=== PATIENT | male | born 1965 | race Caucasian/White ===

== ENCOUNTER 2017-06-25 05:47 | Inpatient (IN) | payer OTHER ==
[2017-06-11 07:58] VITALS: BMI 34.0
--- NOTE | 2017-06-11 08:31 | PAT Medication Instructions ---
Service Date Jun 11, 2017. Current Home Medication List Aspirin (Aspirin Ec), 81 MG PO QAM Fish Oil ([place]-3), 1 CAP PO QAM Lansoprazole (Prevacid), 30 MG PO QAM Multivitamin (Multivitamin), 1 TAB PO QAM Simvastatin (Zocor), 10 MG PO QAM Medication Instructions For Your Scheduled Surgery - Hold the following medications 2 weeks prior to surgery: Fish Oil ([place]-3), 1 CAP PO QAM - Hold the following medications the morning of surgery: Multivitamin (Multivitamin), 1 TAB PO QAM - Take the following medications the morning of surgery with a sip of water: Simvastatin (Zocor), 10 MG PO QAM Lansoprazole (Prevacid), 30 MG PO QAM Aspirin (Aspirin Ec), 81 MG PO QAM If you have any questions please call us at [phone] or [phone] or [phone]
[2017-06-11 10:24] LABS: BASO % 0.4 %; BASO ABS # 0.02 K/uL (0-0.2); COMPLETE YES; EOS % 1.7 %; HEMATOCRIT 41.1 % (42-52); LYMPH % 33.9 %; LYMPH ABS # 1.84 K/uL (1.2-3.4); MEAN CELL VOLUME 83.2 fL (80-100); MEAN CORPUSCULAR HEMOGLOBIN 27.7 pg (25-34); MEAN CORPUSCULAR HGB CONC 33.3 g/dl (32-36); MEAN PLATELET VOLUME 10.2 fL (7.4-10.4); MONO % 9.2 %; NEUT % 54.8 %; PLATELET COUNT 301 K/uL (130-400); RED BLOOD COUNT 4.94 M/uL (4.7-6.1); URINE APPEARANCE CLEAR (CLEAR); URINE BILIRUBIN NEG (NEG); URINE COLOR YELLOW; URINE NITRITE NEG (NEG); URINE SPECIFIC GRAVITY 1.018 (1.000-1.030); UROBILINOGEN NEG (NEG); WHITE BLOOD COUNT 5.43 K/uL (4.8-10.8)
[2017-06-11 10:35] LABS: MANUAL MICROSCOPIC REQUIRED? NO; PARTIAL THROMBOPLASTIN RATIO 1.2; PROTHROMBIN TIME (PATIENT) 10.7 SECONDS (9.0-12.0); REVIEW REQ? NO
[2017-06-11 10:49] LABS: ESTIMATED AVERAGE GLUCOSE 114 mg/dl; HA1C FLAG Normal (Normal)
[2017-06-11 11:20] LABS: BUN/CREATININE RATIO 24.8 (10-20); CALCIUM 9.5 mg/dl (8.5-10.1); CREATININE 0.85 mg/dl (0.60-1.40); POTASSIUM 4.5 mmol/L (3.5-5.1)
--- NOTE | 2017-06-11 12:47 | DIAGNOSTIC IMAGING REPORT ---
CHEST PREADMISSION(PA/LAT) CLINICAL HISTORY: 51 years-old Male presenting with PAT. TECHNIQUE: PA and lateral views of the chest were obtained. COMPARISON: None. FINDINGS: Cardiomediastinal silhouette normal. Lungs and pleural spaces clear. Osseous structures normal. Upper abdomen normal. IMPRESSION: 1. No acute cardiopulmonary disease. Electronically signed by: Shabbir Castro M.D. 06/11/2017 12:46 PM Dictated Date/Time: 06/11/2017 12:46 PM
--- NOTE | 2017-06-24 20:31 | HISTORY & PHYSICAL EXAMINATION ---
DATE OF ADMISSION: 06/25/2017 HISTORY OF PRESENT ILLNESS: The patient presents being seen and evaluated with complaints of ongoing pain about his left knee with severe endstage DJD about his left knee for left total knee arthroplasty. This is a 51-year-old white male, 5 foot 11 inches, 240 pounds with severe left knee DJD who has failed attempts at conservative management including physical therapy, anti-inflammatories, relative rest, activity modification, viscosupplementation and presents for left total knee arthroplasty. PAST MEDICAL HISTORY: Significant for hypercholesterolemia. He denies any history of hypertension, thyroid or diabetes. His pain is otherwise unremarkable. FAMILY HISTORY: Unremarkable and noncontributory. PAST SURGICAL HISTORY: Significant for previous arthroscopy in 2001, left knee with ACL reconstruction in 2004. ALLERGIES: None. MEDICATIONS: Include Prevacid p.r.n., simvastatin 40 mg p.o. daily, aspirin 81 mg p.o. daily. REVIEW OF SYSTEMS: Otherwise unremarkable. See history of present illness for pertinent positives. PHYSICAL EXAMINATION: GENERAL: A very pleasant 51-year-old male. HEENT: Unremarkable, alert and oriented, atraumatic, normocephalic. HEART: Heart rate 70 beats per minute. LUNGS: Clear without rales, rhonchi, or wheezes noted. ABDOMEN: Soft, nontender, nondistended. Bowel sounds are present in all 4 quadrants. RECTAL: No rectal examination was performed. MUSCULOSKELETAL: Severe end-stage DJD. PLAN: Plan is for total knee arthroplasty, postoperative pain management, DVT prophylaxis, antibiotics as necessary. X-rays revealed there to be evidence of subchondral cystic changes, sclerosis, marginal osteophytes and varus alignment with bone to bone changes involving the medial compartment. Plan is for total knee arthroplasty, postoperative pain management, DVT prophylaxis.
[~2017-06-25] VITALS: Ht 180.3 cm; Wt 112.2 kg
[2017-06-25] VITALS (8 sets, daily range): BP systolic 95–141; BP diastolic 54–94; PULSE 77–97; TEMP 36.3–37.1; O2SAT 95–97; Ht 180.3 cm; Wt 112.2 kg
[~2017-06-25 05:47] MED LIST: ASPI81TA28 PO; LANS30CA12 PO; MULT-506 PO; OMEG10007 PO; SIMV10TA2 PO
[2017-06-25] MEDS ORDERED: DEXAMETHASONE 4 MG TAB PO SCH (06:00)
[2017-06-25] MEDS ORDERED: LACTATED RINGER'S 1000ML 500 ML IV ONE (06:00)
[2017-06-25] MEDS ORDERED: ACETAMINOPHEN 500 MG TAB PO SCH (06:00)
[2017-06-25] MEDS ORDERED: LACTATED RINGER'S 1000ML IV SCH (06:00)
[2017-06-25] MEDS ORDERED: GABAPENTIN 300 MG CAP PO SCH (06:00)
[2017-06-25] MEDS ORDERED: FAMOTIDINE 20 MG TAB PO SCH (06:00)
[2017-06-25] MEDS ORDERED: LACTATED RINGER'S 1000ML 1,000 ML IV SCH (06:00)
[2017-06-25] MEDS ORDERED: ROPIVACAINE 5MG/ML 30 ML 150 MG, BUPIVACAINE/EPINEPHR 0.5% MPF 30 ML, KETOROLAC TROMETH... INFIL SCH ×7 (06:00)
[2017-06-25] MEDS ORDERED: CEFAZOLIN 2000MG IV PUSH 10 ML IV SCH (06:00)
[2017-06-25] MEDS ORDERED: TRANEXAMIC ACID INJ 1,000 MG in SYRINGE 0 ML IV SCH (06:00)
[2017-06-25] MEDS ORDERED: CeleBREX 200 MG CAP PO SCH (06:00)
[2017-06-25] MEDS: TRANEXAMIC ACID INJ 1,000 MG in SYRINGE 0 ML IV SCH ×2 (06:30→06:52)
[2017-06-25] MEDS ORDERED: BUPIVACAINE 0.5 % 5 MG/1 ML PF 10ML VIAL ONE (06:37)
[2017-06-25] MEDS ORDERED: BUPIVACAINE 0.25% 30 ML VIAL ONE (06:37)
[2017-06-25] MEDS ORDERED: PROPOFOL IV EMULSION 10 MG/ML 20 ML VIAL IV ONE ×4 (07:00→10:03)
[2017-06-25] MEDS ORDERED: LIDOCAINE HCL 2% 2 ML VIAL (20MG/ML) ONE (07:00)
[2017-06-25] MEDS ORDERED: MIDAZOLAM HCL 1 MG/ML 2ML VIAL ONE ×3 (07:00→08:53)
--- NOTE | 2017-06-25 07:07 | History & Physical Bridge Note ---
H&P Re-Evaluation Bridge Note: I have examined the patient, reviewed the History & Physical and in the interval since the performance of the History & Physical I have noted the following changes of clinical significance: No changes noted
[2017-06-25] MEDS ORDERED: ORTHO JOINT ANESTHETIC ONE (07:12)
[2017-06-25] MEDS ORDERED: POVIDONE-IODINE OP SOLN 30 ML BTL ONE (07:13)
[2017-06-25] MEDS ORDERED: BACITRACIN 50000 UNIT VIAL ONE (07:13)
[2017-06-25] MEDS ORDERED: SODIUM CHLORIDE 0.9% INJ 10 ML VIAL ONE ×2 (08:53→09:09)
[2017-06-25] MEDS ORDERED: CEFAZOLIN SOD 1 GM VIAL ONE (08:53)
[2017-06-25] MEDS ORDERED: KETOROLAC TROMETHAMINE 30 MG/ML VIAL IV. PRN ×2 (09:00→10:15)
[2017-06-25] MEDS ORDERED: PHENYLEPHRINE 100MCG/ML 5ML SYR IV PRN (09:00)
[2017-06-25] MEDS ORDERED: EpHEDrine SULFATE INJ 50 MG/ML AMP IV PRN (09:00)
[2017-06-25] MEDS ORDERED: HYDROmorphone INJ 2 MG/ML SYR/VIAL IV PRN (09:00)
[2017-06-25] MEDS ORDERED: ATROPINE SULFATE 0.1 MG/ML 5ML SYR IV PRN (09:00)
[2017-06-25] MEDS ORDERED: ONDANSETRON INJ 2 MG/ML 2 ML VIAL IV PRN ×2 (09:00→10:15)
[2017-06-25] MEDS ORDERED: KETAMINE HCL INJ 50 MG/ML 10 ML VIAL ONE (09:09)
[2017-06-25] MEDS ORDERED: BISACODYL 10 MG SUPP PR PRN (10:15)
[2017-06-25] MEDS ORDERED: TRAMADOL HCL 50 MG TAB PO PRN (10:15)
[2017-06-25] MEDS ORDERED: SOD PHOSPHATE/SOD BIPHOSPHATE ENEMA 132 ML BTL PR PRN (10:15)
[2017-06-25] MEDS ORDERED: MAGNESIUM HYDROXIDE SUSP 30 ML UDC PO PRN (10:15)
[2017-06-25] MEDS ORDERED: MoRPHine SULFATE 2 MG/ML CARP IV PRN ×2 (10:15→12:00)
[2017-06-25] MEDS ORDERED: ZOLPIDEM TARTRATE 5 MG TAB PO PRN (10:15)
[2017-06-25] MEDS ORDERED: ALUMINUM/MAGNESIUM/SIMETH (MAALOX MAX) 30 ML UDC PO PRN (10:15)
--- NOTE | 2017-06-25 10:19 | [facility] Operative Report ---
Operative Report Operative Date Jun 25, 2017. Pre-Operative Diagnosis Left knee severe degenerative joint disease Post-Operative Diagnosis Left knee severe degenerative joint disease Procedure(s) Performed Left Total Knee Arthroplasty utilizing Gilbert & Nephew journey 2 patient matched size 8 femur 6 tibia 11 Clara [address] Guillaume Armature Straightener Surgeon(s) Paul Mullen PA-C Estimated Blood Loss 5cc Findings Severe end-stage DJD with [id number] changes subchondral sclerosis cystic changes osteophytes Specimens Left knee bone and tissue Complication(s) None Disposition Recovery Room / PACU Indications Severe end-stage DJD nonresponse to conservative management including physical therapy anti-inflammatories relative rest activity modification subchondral sclerosis cystic changes osteophytes Description of Procedure After proper prepping and draping of the left lower extremity anterior midline incision was made over the region of the extensor extensor mechanism after meticulous hemostasis was obtained and maintained in subcutaneous tissues a medial parapatellar incision was made The patella was subluxed lateralward the medial lateral gutter were cleaned from any hypertrophic synovitis and scar tissue of the distal femoral block was placed and the distal femoral osteotomy cut was made subsequently the chamfers anterior and posterior osteotomy cuts were made utilizing the 4-in-1 block the tibia was subsequently subluxed anteriorward medial and ateral meniscal remnants were excised in their entirety remnants of the anterior and posterior cruciate ligaments were excised in their entirety excellent exposure of the proximal tibia was obtained the tibial osteotomy guide was placed on the proximal tibial osteotomy cut was made once again the knee was irrigated with copious amounts of sterile saline solution the patella was subsequently everted lateralward thickened scar tissue around the patella was removed the patella was subsequently cut utilizing a freehand technique and was drilled prepared for final preparation and placement of patella socially flexion-extension gaps were checked and the equal and symmetric trials were placed to the appropriate femoral and tibial trials with poly-spacer being placed for equal flexion and extension gaps and full range of motion including extension to 0 and flexion to 140 the trial components after having been taken to recovery range of motion was subsequently removed meticulous hemostasis was obtained and maintained subsequently a knee block injection of joint cocktail including ropivacaine 0.5% 150 mg. Bupivacaine 0.5 % epinephrine 1-200,030 mL's toradol 30 mg dexamethasone 4 mg ketamine 10 mg clonidine 100 micrograms normal saline solution 30 mg was infiltrated into the soft tissues of the posterior knee medial lateral gutters and periosteal synovium special attention was paid to protect neurovascular structures at all times subsequently trial components having been removed the knee was irrigated with sterile saline solution. debris was removed the proximal tibia was subsequently prepared and was made ready for the placement of the tibial component tibial component was also cemented and tamped into position the femoral component was subsequently placed and cemented in the position the patellar component was subsequently cemented in position because hemostasis once again obtained and maintained wound having been thoroughly irrigated with debridement and debridement lavage was performed as well as a medial parapatellar incision closed with #1 Vicryl in interrupted fashion subcutaneous was closed with #2 Vicryl skin was closed with skin clips. PA-C was necessary for prepping and drapping as well as wound closure of deep fascia Sub cutaneous tissue and skin and was necessary for the case. A sterile compressive dressing was placed patient was taken to recovery in stable condition of report dictated by Markell I attest to the content of the Intraoperative Record and any orders documented therein. Any exceptions are noted below. I attest to the content of the Intraoperative Record and any orders documented therein. Any exceptions are noted below.
--- NOTE | 2017-06-25 11:47 | DIAGNOSTIC IMAGING REPORT ---
LEFT KNEE 2 VIEWS History: Left total knee arthroplasty. Degenerative arthritis. Postop. FINDINGS: The patient is status post a left total knee arthroplasty. The hardware is intact. No fracture or dislocation. Surgical drains are in place. IMPRESSION: Left total knee arthroplasty. No evidence for hardware complication. Electronically signed by: Santy Funez M.D. 06/25/2017 11:46 AM Dictated Date/Time: 06/25/2017 11:45 AM
[2017-06-25] MEDS ORDERED: MoRPHine SULFATE 4 MG/ML 1 ML CARP\\VIAL IV PRN (12:00)
[2017-06-25] MEDS ORDERED: MoRPHine SULFATE 10 MG/ML CARP/VIAL IV PRN (12:00)
--- NOTE | 2017-06-25 12:57 | Anesthesiology Progress Note ---
Anesthesia Post Op Note Date & Time Jun 25, 2017 at 12:57 Vital Signs Pain Intensity: 0 Vital Signs Past 12 Hours Date Time Temp Pulse Resp B/P (MAP) Pulse Ox O2 Delivery O2 Flow Rate FiO2 06/25/17 12:32 86 16 127/81 (96) 96 Room Air 06/25/17 11:40 36.6 89 20 124/79 96 Nasal Cannula 3 06/25/17 11:30 88 20 120/79 96 Nasal Cannula 3 06/25/17 11:20 88 20 134/87 96 Nasal Cannula 3 06/25/17 11:10 93 18 133/80 97 Nasal Cannula 3 06/25/17 11:00 36.2 93 20 123/75 97 Nasal Cannula 3 06/25/17 10:50 36.2 102 20 129/72 97 Nasal Cannula 3 06/25/17 06:10 37 84 20 141/94 95 Room Air Notes Mental Status: alert / awake / arousable, participated in evaluation Pt Amnestic to Procedure: Yes Nausea / Vomiting: adequately controlled Pain: adequately controlled Airway Patency, RR, SpO2: stable & adequate BP & HR: stable & adequate Hydration State: stable & adequate Anesthetic Complications: no major complications apparent
[2017-06-25] MEDS: D5W AND 1/2NSS + 20MEQ KCL 1,000 ML IV SCH ×2 (13:27→22:36)
[2017-06-25] MEDS: ACETAMINOPHEN 500 MG TAB PO SCH ×2 (13:30→21:42)
[2017-06-25] MEDS: CEFAZOLIN IV 2,000 MG in SYRINGE 0 ML IV SCH (17:12)
[2017-06-25] MEDS ORDERED: CEFAZOLIN IV 2,000 MG in SYRINGE 0 ML IV SCH (19:00)
[2017-06-25] MEDS: DOCUSATE SODIUM 100 MG CAP PO SCH (20:43)
[2017-06-25] MEDS: ASPIRIN 81 MG ECTAB PO SCH (20:43)
[2017-06-25] MEDS ORDERED: SENNA 8.6 MG TAB PO SCH (21:00)
[2017-06-25] MEDS: OXYCODONE HCL IR 5 MG TAB (IMMEDIATE RELEASE) PO PRN (21:45)
[2017-06-26] MEDS: CEFAZOLIN IV 2,000 MG in SYRINGE 0 ML IV SCH (00:29)
[2017-06-26 03:40] VITALS: BP 109/66; PULSE 76; TEMP 36.7; O2SAT 96
[2017-06-26] MEDS: ACETAMINOPHEN 500 MG TAB PO SCH (06:27)
--- NOTE | 2017-06-26 07:22 | Orthopedic Progress Note ---
Orthopedic Progress Note Date of Service Jun 26, 2017. Subjective Post OP Day: 1 Reports: feeling well, pain controlled w PO medications, Denies: complaints, chest pain, SOB, nausea / vomiting, light headedness, calf pain Objective calves soft nontender, N/V intact, capillary refill less than 2 sec., dressing C /D/I, A&O x3, toes mobile, hemovac drainage (100cc/8 hours) Date Time Temp Pulse Resp B/P (MAP) Pulse Ox O2 Delivery O2 Flow Rate FiO2 06/26/17 03:40 36.7 76 17 109/66 (80) 96 Room Air 06/26/17 00:30 Room Air 06/25/17 23:10 36.7 88 16 95/54 (68) 95 Room Air 06/25/17 19:30 36.3 84 18 116/72 (87) 96 Room Air 06/25/17 15:30 Nasal Cannula 2.0 06/25/17 15:00 36.8 77 18 134/69 (90) 96 Nasal Cannula 2.0 06/25/17 14:02 86 16 109/72 (84) 97 Nasal Cannula 2.0 06/25/17 13:00 97 16 110/74 (86) 95 06/25/17 12:32 86 16 127/81 (96) 96 Room Air 06/25/17 12:00 37.1 92 16 115/74 (88) 95 Nasal Cannula 2.0 06/25/17 12:00 Nasal Cannula 2.0 06/25/17 12:00 95 Nasal Cannula 2.0 06/25/17 11:40 36.6 89 20 124/79 96 Nasal Cannula 3 06/25/17 11:30 88 20 120/79 96 Nasal Cannula 3 06/25/17 11:20 88 20 134/87 96 Nasal Cannula 3 06/25/17 11:10 93 18 133/80 97 Nasal Cannula 3 06/25/17 11:00 36.2 93 20 123/75 97 Nasal Cannula 3 06/25/17 10:50 36.2 102 20 129/72 97 Nasal Cannula 3 Laboratory Results 24 Hours: Test 06/26/17 06:46 Assessment & Plan Assessment: POD #1 s/p Left TKA -PT/OT -dvt proph with BRENNA/SCD/ASA -will recheck after PT this afternoon for poss discharge with OPPT Discharge Planning Discharge Planning: home DVT Prophylaxis: TEDs, SCDs, ASA Therapy: Physical Therapy
--- NOTE | 2017-06-26 07:23 | Discharge Instructions ---
Discharge Instructions Date of Service Jun 26, 2017. Admission Reason for Admission: Left Knee Osteoarthritis Discharge Discharge Diagnosis / Problem: s/p Left Total Knee Replacement Discharge Goals Goal(s): Decrease discomfort, Improve function, Increase independence Activity Recommendations Activity Limitations: as noted below Weightbearing Status: Left weightbearing (as tolerated) . Instructions / Follow-Up Instructions / Follow-Up ACTIVITY RECOMMENDATIONS: SELF CARE INSTRUCTIONS AFTER TOTAL KNEE REPLACEMENT A. You may need to continue a physical therapy program after discharge from the hospital. There are several options available to you. Your doctor will assist you in selecting the best one for you. 1. An out-patient facility 2 to 3 times a week for therapy or home therapy. 2. Continue working on all exercises taught to you in the hospital. Your goals should be to increase bending of your knee to 90 degrees and beyond and to fully straighten your knee. B. You may progress at your own pace from walking with a walker or crutches to a cane; then to no assistive devices. C. Make walking a part of your daily routine. Be up as much as comfortable with rest periods throughout the day. Rest with leg elevation is very important. Use the ice wrap frequently for the first 3-4 weeks. D. There are no restrictions on activities. You may ride in a car, shop, participate in scheduling specialist and all social activities. E. Wear the long elastic stockings (BRENNA hose) 20 hours a day for 2 weeks after surgery. They can be removed several times a day for laundering and for a bath. F. You may shower, no tub baths until cleared by your doctor. SPECIAL CARE INSTRUCTIONS: VERY IMPORTANT TO READ AND REVIEW A. There are a few signs you need to watch for after you are home. Call [facility] [place] if you notice any of the followin. Increased severe knee pain. Some pain is expected especially when you exercise. 2. Increased swelling in your leg or knee; pain or swelling of the calf muscle in either lower leg. 3. Any fluid drainage from the incision. 4. Shortness of breath or chest pain. B. Please call [facility] at if you have any concerns or questions about your operation or recovery. The doctor or his nurse will return your call promptly. C. You must take antibiotics before dental work, bladder, bowel or other surgery. Your doctor will provide you with a permanent care to carry describing this precaution. IMPORTANT: * REMEMBER TO TAKE ASPIRIN, 81 MG, TWICE DAILY FOR 4 WEEKS UNLESS OTHERWISE DIRECTED. THIS IS YOUR BLOOD THINNER. * HIGH RISK PATIENTS MAY BE PRESCRIBED A STRONGER BLOOD THINNER. THIS WILL BE PROVIDED AT DISCHARGE. * CALL IF INCREASED PAIN, REDNESS, DRAINAGE OR FEVER GREATER THAT 101. * WEAR BRENNA HOSE 20 HOURS PER DAY FOR 2 WEEKS. * YOU MAY HAVE A LARGE BAND-AID LIKE DRESSING (SILVERON). THIS WILL REMAIN ON YOUR INCISION FOR 7 DAYS, THEN CAN BE REMOVED. IF INCISION IS LEAKING THROUGH DRESSING, CALL THE OFFICE . FOLLOW UP VISIT: If appointment is not already scheduled: Please call [facility] [place] to make a follow-up appointment for 2 weeks after your surgery at . Zip Skin Closure You will be given instructions by nursing staff at the time of discharge to care for your Zip Closure System. This devices uses plastic straps to keep your incision closed and protected throughout your recovery. If you have any questions please refer to these instructions first. Current Hospital Diet Patient's current hospital diet: Regular Diet Discharge Diet Recommended Diet: Regular Diet Procedures Procedures Performed: Left Total Knee Arthroplasty utilizing Gilbert & Nephew journey 2 patient matched size 8 femur 6 tibia 11 Clara 32 oval patella Pending Studies Studies pending at discharge: no Laboratory Results Hemoglobin A1c Test 06/11/17 08:23 Range/Units Estimated Average Glucose 114 mg/dl Hemoglobin A1c 5.6 4.5-5.6 % Medical Emergencies . Who to Call and When: Medical Emergencies: If at any time you feel your situation is an emergency, please call 911 immediately. . Non-Emergent Contact Non-Emergency issues call your: Primary Care Provider . "Provider Documentation" section prepared by Brian Dill. . VTE Core Measure Inpt VTE Proph given/why not?: Other Anticoagulation (ASA 81mg po bid x 1 month ), [facility] [place] Drug Monitoring Program Search Results: patient reviewed within database, no issues identified
[2017-06-26] MEDS ORDERED: CLB200 PO (07:26)
[2017-06-26] MEDS ORDERED: ULT50X PO (07:26)
[2017-06-26] MEDS ORDERED: RXC5 PO (07:26)
[2017-06-26] MEDS ORDERED: ACET-24 PO (07:26)
[2017-06-26] MEDS ORDERED: CLC100 PO (07:26)
[2017-06-26] MEDS ORDERED: ASPEC81 PO (07:26)
[2017-06-26] MEDS ORDERED: ONDA8TAB6 PO (07:26)
[2017-06-26 07:31] LABS: HEMATOCRIT 34.3 % (42-52); MEAN CELL VOLUME 84.1 fL (80-100); MEAN CORPUSCULAR HEMOGLOBIN 27.7 pg (25-34); MEAN CORPUSCULAR HGB CONC 32.9 g/dl (32-36); PLATELET COUNT 259 K/uL (130-400); RED BLOOD COUNT 4.08 M/uL (4.7-6.1); WHITE BLOOD COUNT 13.11 K/uL (4.8-10.8)
[2017-06-26 07:39] LABS: PROTHROMBIN TIME (PATIENT) 11.2 SECONDS (9.0-12.0)
[2017-06-26 07:42] VITALS: BP 122/80; PULSE 73; TEMP 36.8; O2SAT 97
[2017-06-26 07:52] VITALS: O2SAT 97
[2017-06-26 07:59] LABS: BUN/CREATININE RATIO 16.3 (10-20); CALCIUM 8.5 mg/dl (8.5-10.1); CREATININE 0.85 mg/dl (0.60-1.40); POTASSIUM 3.9 mmol/L (3.5-5.1)
[2017-06-26] MEDS: DOCUSATE SODIUM 100 MG CAP PO SCH (08:33)
[2017-06-26] MEDS: D5W AND 1/2NSS + 20MEQ KCL 1,000 ML IV SCH (08:33)
[2017-06-26] MEDS: ASPIRIN 81 MG ECTAB PO SCH (08:34)
[2017-06-26] MEDS ORDERED: MULTIVITAMIN TAB PO SCH (09:00)
[2017-06-26] MEDS ORDERED: PANTOprazole SOD 40 MG TAB PO SCH (09:00)
[2017-06-26] MEDS ORDERED: SIMVASTATIN 10 MG TAB PO SCH (09:00)
--- NOTE | 2017-06-26 10:15 | Anesthesiology Progress Note ---
Anesthesia Post Op Note Date & Time Jun 26, 2017 at 10:14 Vital Signs Pain Intensity: 0.0 Vital Signs Past 12 Hours Date Time Temp Pulse Resp B/P (MAP) Pulse Ox O2 Delivery O2 Flow Rate FiO2 06/26/17 07:52 97 Room Air 06/26/17 07:42 36.8 73 16 122/80 (94) 97 Room Air 06/26/17 07:37 Room Air 06/26/17 03:40 36.7 76 17 109/66 (80) 96 Room Air 06/26/17 00:30 Room Air 06/25/17 23:10 36.7 88 16 95/54 (68) 95 Room Air Notes Mental Status: alert / awake / arousable, participated in evaluation Pt Amnestic to Procedure: Yes Nausea / Vomiting: adequately controlled Pain: adequately controlled Airway Patency, RR, SpO2: stable & adequate BP & HR: stable & adequate Hydration State: stable & adequate Neuraxial Anesthesia: sensory block resolved Anesthetic Complications: no major complications apparent
[2017-06-26 12:08] VITALS: BP 116/70; PULSE 80; TEMP 36.5; O2SAT 96
[2017-06-26 12:29] VITALS: BP 116/70; PULSE 80; TEMP 36.5; O2SAT 96
[2017-06-26] MEDS: OXYCODONE HCL IR 5 MG TAB (IMMEDIATE RELEASE) PO PRN (13:36)
[2017-06-26] MEDS ORDERED: CeleBREX 200 MG CAP PO SCH (21:00)
== END 2017-06-26 13:45 | disposition home or self-care (01) | DRG 470 ==
LOC: C.ACU 05:47 → C.3E 06:45 → ENRESERV 11:44
PROVIDERS: ADMIT Orthopaedic Surgery; ATTEND Orthopaedic Surgery
PROC: 0SRD0J9 Replacement of Left Knee Joint with Synthetic Substitute, Cemented, Open Approach (ICD-10-PCS; principal; 2017-06-25 08:15)
DX: M17.12 Unilateral primary osteoarthritis, left knee (principal); E78.00 Pure hypercholesterolemia, unspecified; Z79.82 Long term (current) use of aspirin

== ENCOUNTER 2017-08-07 09:20 | Inpatient (IN) | payer OTHER ==
--- NOTE | 2017-08-06 14:43 | HISTORY & PHYSICAL EXAMINATION ---
DATE OF ADMISSION: 08/07/2017 HISTORY OF PRESENT ILLNESS: The patient presents as a 51-year-old white male being seen and evaluated for his status post total knee arthroplasty who had a fall while in [place] on a hyperflexed knee, sustaining a partial rupture of his quad tendon repair. He is a 5-foot 11-inch, 240-pound white male with the above complaints. PAST MEDICAL HISTORY: Significant for hypercholesterolemia, acid reflux, hiatal hernia, obesity. FAMILY HISTORY: Unremarkable and noncontributory. SOCIAL HISTORY: The patient denies history of smoking, alcohol use or recreational drug use. PAST SURGICAL HISTORY: Consistent with previous left total knee arthroplasty in 2001, ACL reconstruction in 2004, arthroscopic reconstruction. MEDICAL ALLERGIES: None. MEDICATIONS: Include Prevacid, simvastatin, aspirin, and multivitamin. REVIEW OF SYSTEMS: Otherwise unremarkable. See history of present illness for pertinent positives. PHYSICAL EXAMINATION: GENERAL: Reveals a very pleasant 51-year-old male with the above findings as noted. He presents after having had a fall on a hyperflexed knee while slipping on the ice in [place], sustaining a tear of his VMO quad repair. HEENT: Unremarkable, atraumatic, normocephalic. HEART: Regular at 70 beats per minute. No murmurs are noted. LUNGS: Clear. No rales, rhonchi, or wheezes noted. ABDOMEN: Soft, nontender, nondistended. Bowel sounds are present in all 4 quadrants. RECTAL: No rectal examination was performed. MUSCULOSKELETAL: Consistent with that of a palpable defect as well as verification via CT scan of a partial tear of VMO quad tendon. PLAN: For repair of VMO quad tendon, postoperative pain management, antibiotics, DVT prophylaxis, and physical therapy.
[2017-08-06 15:28] VITALS: BMI 34.0
[~2017-08-07] VITALS: Ht 180.3 cm; Wt 112.0 kg
[2017-08-07] VITALS (7 sets, daily range): BP systolic 106–139; BP diastolic 63–80; PULSE 80–97; TEMP 36.3–37.5; O2SAT 91–96; Ht 180.3 cm; Wt 112.0 kg
[~2017-08-07 09:20] MED LIST changes: +ACETAMINOPHEN 500 MG TAB PO SCH; +CEFAZOLIN 2000MG IV PUSH 10 ML IV SCH; +CLB/200 PO; +CeleBREX 200 MG CAP PO SCH; +DEXAMETHASONE 4 MG TAB PO SCH; +DOCU100C31 PO; +FAMOTIDINE 20 MG TAB PO SCH; +GABAPENTIN 300 MG CAP PO SCH; +LACTATED RINGER'S 1000ML 1,000 ML IV SCH
[2017-08-07] MEDS ORDERED: ACET-1256 PO (10:14)
[2017-08-07] MEDS ORDERED: TRANEXAMIC ACID INJ 1,000 MG in SYRINGE 0 ML IV SCH (10:30)
[2017-08-07] MEDS ORDERED: ROPIVACAINE 5MG/ML 30 ML 150 MG, BUPIVACAINE 0.5% MPF INJ 30 ML, EpINEphrine HCL INJ 0.... INFIL SCH ×8 (10:30)
[2017-08-07] MEDS ORDERED: BUPIVACAINE 0.25% 30 ML VIAL ONE (10:47)
[2017-08-07] MEDS ORDERED: BUPIVACAINE 0.5 % 5 MG/1 ML PF 10ML VIAL ONE (10:47)
[2017-08-07] MEDS ORDERED: FENTANYL CITRATE INJ 50 MCG/1 ML 2 ML VIAL IV PRN (11:15)
[2017-08-07] MEDS ORDERED: EpHEDrine SULFATE INJ 50 MG/ML AMP IV PRN (11:15)
[2017-08-07] MEDS ORDERED: ONDANSETRON INJ 2 MG/ML 2 ML VIAL IV PRN ×2 (11:15→13:45)
[2017-08-07] MEDS ORDERED: ATROPINE SULFATE 0.1 MG/ML 5ML SYR IV PRN (11:15)
[2017-08-07] MEDS ORDERED: FENTANYL CITRATE INJ 50 MCG/1 ML 2 ML VIAL ONE (11:41)
[2017-08-07] MEDS ORDERED: MIDAZOLAM HCL 1 MG/ML 2ML VIAL ONE (11:41)
[2017-08-07] MEDS ORDERED: BACITRACIN 50000 UNIT VIAL ONE (12:52)
[2017-08-07] MEDS ORDERED: POVIDONE-IODINE OP SOLN 30 ML BTL ONE (12:52)
[2017-08-07] MEDS ORDERED: ORTHO JOINT ANESTHETIC ONE (12:52)
[2017-08-07] MEDS ORDERED: NURSING VERBAL MED ORDER STA (13:27)
[2017-08-07] MEDS ORDERED: SOD PHOSPHATE/SOD BIPHOSPHATE ENEMA 132 ML BTL PR PRN (13:45)
[2017-08-07] MEDS ORDERED: MAGNESIUM HYDROXIDE SUSP 30 ML UDC PO PRN (13:45)
[2017-08-07] MEDS ORDERED: ZOLPIDEM TARTRATE 5 MG TAB PO PRN (13:45)
[2017-08-07] MEDS ORDERED: ALUMINUM/MAGNESIUM/SIMETH (MAALOX MAX) 30 ML UDC PO PRN (13:45)
[2017-08-07] MEDS ORDERED: CEFAZOLIN IV 2,000 MG in DEXTROSE 5% 50ML 50 ML IV SCH (13:45)
[2017-08-07] MEDS ORDERED: MoRPHine SULFATE 2 MG/ML CARP IV PRN (13:45)
[2017-08-07] MEDS ORDERED: TRAMADOL HCL 50 MG TAB PO PRN (13:45)
[2017-08-07] MEDS ORDERED: KETOROLAC TROMETHAMINE 30 MG/ML VIAL IV. PRN (13:45)
[2017-08-07] MEDS ORDERED: BISACODYL 10 MG SUPP PR PRN (13:45)
[2017-08-07] MEDS ORDERED: LIDOCAINE HCL 2% 2 ML VIAL (20MG/ML) ONE (14:01)
[2017-08-07] MEDS ORDERED: PROPOFOL IV EMULSION 10 MG/ML 20 ML VIAL IV ONE (14:01)
--- NOTE | 2017-08-07 14:44 | [facility] Operative Report ---
Operative Report Operative Date Aug 07, 2017. Pre-Operative Diagnosis Complete Left Knee Quadricep Tear Post-Operative Diagnosis Complete Left Knee Quadricep Tear Procedure(s) Performed Left Knee Quadriceps Repair Surgeon Dr. Yonathan Guillaume Podopediatrician Surgeon(s) Brian Dill PA-C Estimated Blood Loss 7cc Findings Acute traumatic rupture of quadriceps tendon as well as left total knee arthroplasty Specimens none per surgeon Dr. Yonathan Guillaume Complication(s) None Disposition Recovery Room / PACU Indications Acute traumatic rupture quadriceps tendon left knee arthroplasty status post fall flex knee Description of Procedure After proper prepping draping with her family and anterior midline centimeters extradite the subcutaneous tissues there is a tear through the region of the previous quadricep VMO arthrotomy that extended laterally into the quadricep vastus lateralis muscle immediately into the medial retinaculum the acute event that occurred after a fall on ice while in [place] the wound was thoroughly irrigated debridement lavage knee was stable with her particular pathology was noted subsequently after thorough irrigation with sterile saline solution with bacitracin the medial retinaculum were repaired with #5 FiberWire #2 FiberWire # 1-0 Vicryl loser even once the posterior sizers subcutaneous socially 2 Vicryl skin was closed with 3-0 Monocryl and glue sterile compression dressing placed patient was taken to recovery in stable condition Brian MENG was necessary prepping draping retraction wound closure defect subcutaneous and skin was necessary for the case I attest to the content of the Intraoperative Record and any orders documented therein. Any exceptions are noted below.
[2017-08-07] MEDS ORDERED: MoRPHine SULFATE 4 MG/ML 1 ML CARP\\VIAL IV PRN (14:45)
[2017-08-07] MEDS ORDERED: MoRPHine SULFATE 10 MG/ML CARP/VIAL IV PRN (14:45)
--- NOTE | 2017-08-07 15:11 | DIAGNOSTIC IMAGING REPORT ---
L KNEE 1 OR 2 VIEWS ROUTINE CLINICAL HISTORY: Postop examination COMPARISON: 06/25/2017 DISCUSSION: There are postsurgical changes of a total left knee arthroplasty and patellar resurfacing. There is a small amount of air within the soft tissues likely postsurgical. No acute fractures or dislocations are visualized. IMPRESSION: Total left knee arthroplasty. Air within the soft tissues likely postsurgical. Electronically signed by: Zelalem Morales M.D. 08/07/2017 3:10 PM Dictated Date/Time: 08/07/2017 3:09 PM
--- NOTE | 2017-08-07 15:28 | Anesthesiology Progress Note ---
Anesthesia Post Op Note Date & Time Aug 07, 2017 at 15:28 Vital Signs Pain Intensity: 0 Vital Signs Past 12 Hours Date Time Temp Pulse Resp B/P (MAP) Pulse Ox O2 Delivery O2 Flow Rate FiO2 08/07/17 15:12 93 16 95 08/07/17 15:12 92 16 08/07/17 15:11 131/78 08/07/17 15:07 92 16 08/07/17 15:07 91 16 96 08/07/17 15:06 109/75 08/07/17 15:06 36.7 92 18 131/78 (91) 96 Nasal Cannula 2 08/07/17 15:02 89 20 97 08/07/17 15:02 90 20 08/07/17 15:01 118/69 08/07/17 14:57 94 20 08/07/17 14:57 93 20 94 08/07/17 14:56 122/70 08/07/17 14:53 91 14 08/07/17 14:53 90 14 98 08/07/17 14:51 119/71 08/07/17 14:48 92 18 96 08/07/17 14:48 93 18 08/07/17 14:46 118/68 08/07/17 14:43 95 27 08/07/17 14:43 98 27 98 08/07/17 14:41 117/68 08/07/17 14:39 127/68 08/07/17 14:38 36.7 101 16 127/68 96 Nasal Cannula 10 08/07/17 14:38 101 95 08/07/17 14:38 101 08/07/17 09:55 36.6 92 18 139/ (46) 96 Room Air Notes Mental Status: alert / awake / arousable, participated in evaluation Pt Amnestic to Procedure: Yes Nausea / Vomiting: adequately controlled Pain: adequately controlled Airway Patency, RR, SpO2: stable & adequate BP & HR: stable & adequate Hydration State: stable & adequate Neuraxial Anesthesia: was administered, sensory block is resolving Anesthetic Complications: no major complications apparent
[2017-08-07] MEDS: ACETAMINOPHEN 500 MG TAB PO SCH ×2 (16:00→23:17)
[2017-08-07] MEDS: D5W AND 1/2NSS + 20MEQ KCL 1,000 ML IV SCH (16:16)
[2017-08-07] MEDS: FERROUS GLUCONATE 324 MG TAB PO SCH (18:14)
[2017-08-07] MEDS: OXYCODONE HCL IR 5 MG TAB (IMMEDIATE RELEASE) PO PRN ×2 (18:54→23:17)
[2017-08-07] MEDS: ASPIRIN 81 MG ECTAB PO SCH (20:27)
[2017-08-07] MEDS: DOCUSATE SODIUM 100 MG CAP PO SCH (20:27)
[2017-08-07] MEDS ORDERED: SENNA 8.6 MG TAB PO SCH (21:00)
[2017-08-07] MEDS: CEFAZOLIN IV 2,000 MG in SYRINGE 0 ML IV SCH (21:41)
[2017-08-08] MEDS: D5W AND 1/2NSS + 20MEQ KCL 1,000 ML IV SCH ×2 (01:57→09:43)
[2017-08-08 03:16] VITALS: BP 111/65; PULSE 81; TEMP 36.6; O2SAT 97
[2017-08-08] MEDS: CEFAZOLIN IV 2,000 MG in SYRINGE 0 ML IV SCH (05:45)
[2017-08-08] MEDS: OXYCODONE HCL IR 5 MG TAB (IMMEDIATE RELEASE) PO PRN ×2 (05:51→13:01)
[2017-08-08 06:30] LABS: HEMATOCRIT 37.2 % (42-52); HEMOGLOBIN 11.9 g/dL (14.0-18.0); MEAN CORPUSCULAR HEMOGLOBIN 26.6 pg (25-34); MEAN PLATELET VOLUME 9.6 fL (7.4-10.4); PLATELET COUNT 359 K/uL (130-400); RED CELL DISTRIBUTION WIDTH SD 45.3 fL (36.4-46.3); WHITE BLOOD COUNT 7.95 K/uL (4.8-10.8)
[2017-08-08 06:58] VITALS: BP 121/77; PULSE 71; TEMP 36.8; O2SAT 98
[2017-08-08 07:01] LABS: CALCIUM 8.7 mg/dl (8.5-10.1); CREATININE 0.8 mg/dl (0.60-1.40); POTASSIUM 3.7 mmol/L (3.5-5.1)
[2017-08-08] MEDS: ACETAMINOPHEN 500 MG TAB PO SCH (07:36)
--- NOTE | 2017-08-08 08:12 | Orthopedic Progress Note ---
Orthopedic Progress Note Date of Service Aug 08, 2017. Subjective Post OP Day: 1 Reports: feeling well, Denies: chest pain, SOB, nausea / vomiting, light headedness, calf pain Objective calves soft nontender, N/V intact, capillary refill less than 2 sec., dressing C /D/I, A&O x3, toes mobile Date Time Temp Pulse Resp B/P (MAP) Pulse Ox O2 Delivery O2 Flow Rate FiO2 08/08/17 06:58 36.8 71 19 121/77 (92) 98 Room Air 08/08/17 03:16 36.6 81 17 111/65 (80) 97 Room Air 08/07/17 23:35 36.4 80 16 106/63 (77) 96 Room Air 08/07/17 23:21 Room Air 08/07/17 18:46 36.3 94 18 126/80 (95) 91 Room Air 08/07/17 17:41 36.7 97 18 110/72 (85) 94 Room Air 2.0 08/07/17 16:41 37.5 96 20 126/76 (93) 92 Nasal Cannula 2.0 08/07/17 16:14 36.9 92 18 121/75 (90) 94 Nasal Cannula 2.0 08/07/17 15:40 94 Nasal Cannula 2.0 08/07/17 15:40 94 Nasal Cannula 2.0 08/07/17 15:28 99 21 96 08/07/17 15:28 99 21 08/07/17 15:26 119/69 08/07/17 15:23 94 23 95 08/07/17 15:23 93 23 08/07/17 15:21 116/71 08/07/17 15:18 92 16 95 08/07/17 15:18 92 16 08/07/17 15:16 118/69 08/07/17 15:13 95 19 08/07/17 15:13 95 19 94 08/07/17 15:12 93 16 95 08/07/17 15:12 92 16 08/07/17 15:11 131/78 08/07/17 15:07 92 16 08/07/17 15:07 91 16 96 08/07/17 15:06 109/75 08/07/17 15:06 36.7 92 18 131/78 (91) 96 Nasal Cannula 2 08/07/17 15:02 89 20 97 08/07/17 15:02 90 20 08/07/17 15:01 118/69 08/07/17 14:57 94 20 08/07/17 14:57 93 20 94 08/07/17 14:56 122/70 08/07/17 14:53 91 14 08/07/17 14:53 90 14 98 08/07/17 14:51 119/71 08/07/17 14:48 92 18 96 08/07/17 14:48 93 18 08/07/17 14:46 118/68 08/07/17 14:43 95 27 08/07/17 14:43 98 27 98 08/07/17 14:41 117/68 08/07/17 14:39 127/68 08/07/17 14:38 36.7 101 16 127/68 96 Nasal Cannula 10 08/07/17 14:38 101 95 08/07/17 14:38 101 08/07/17 09:55 36.6 92 18 139/ (46) 96 Room Air Laboratory Results 24 Hours: Test 08/08/17 06:02 Hematocrit 37.2 % Hemoglobin 11.9 g/dL Prothromb Time International Ratio 1.0 Prothrombin Time 11.0 SECONDS Assessment & Plan Assessment: POD#1 sp left medial retinacular repair sp fall SP TKA 2016 Plan: PT/OT- WBAT, knee immobilizer daytime caregiver. No flexion DVT proph- ASA Pain management- Lorrie, Tylenol DC planning- Likely DC home today.
[2017-08-08] MEDS ORDERED: ASPI81TA28 PO (08:26)
[2017-08-08] MEDS ORDERED: RXC5 PO (08:26)
[2017-08-08] MEDS ORDERED: CLB/200 PO (08:26)
[2017-08-08] MEDS ORDERED: ACET-1256 PO (08:26)
[2017-08-08] MEDS ORDERED: SENN-61 PO (08:26)
--- NOTE | 2017-08-08 08:28 | Discharge Instructions ---
Discharge Instructions Date of Service Aug 08, 2017. Admission Reason for Admission: Strain Of Left Quadriceps Muscle, Fascia & Tendon Discharge Discharge Diagnosis / Problem: sp left QUAD Discharge Goals Goal(s): Decrease discomfort, Improve function, Increase independence Activity Recommendations Activity Limitations: per Instructions/Follow-up section . Instructions / Follow-Up Instructions / Follow-Up ACTIVITY RECOMMENDATIONS: SELF CARE INSTRUCTIONS AFTER TOTAL KNEE REPLACEMENT A. You need to maintain knee immobilizer when ambulating x 2-3 weeks. May flex knee 0-30 when doing exercises. C. Make walking a part of your daily routine. Be up as much as comfortable with rest periods throughout the day. Rest with leg elevation is very important. Use the ice wrap frequently for the first 3-4 weeks. D. There are no restrictions on activities. 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 E. Wear the long elastic stockings (BRENNA hose) 20 hours a day for 2 weeks after surgery. They can be removed several times a day for laundering and for a bath. F. You may shower, no tub baths until cleared by your doctor. SPECIAL CARE INSTRUCTIONS: VERY IMPORTANT TO READ AND REVIEW A. There are a few signs you need to watch for after you are home. Call [facility] if you notice any of the followin. Increased severe knee pain. Some pain is expected especially when you exercise. 2. Increased swelling in your leg or knee; pain or swelling of the calf muscle in either lower leg. 3. Any fluid drainage from the incision. 4. Shortness of breath or chest pain. B. Please call [facility] at if you have any concerns or questions about your operation or recovery. The doctor or his nurse will return your call promptly. C. You must take antibiotics before dental work, bladder, bowel or other surgery. Your doctor will provide you with a permanent care to carry describing this precaution. IMPORTANT: * REMEMBER TO TAKE ASPIRIN, 81 MG, TWICE DAILY FOR 4 WEEKS UNLESS OTHERWISE DIRECTED. THIS IS YOUR BLOOD THINNER. * HIGH RISK PATIENTS MAY BE PRESCRIBED A STRONGER BLOOD THINNER. THIS WILL BE PROVIDED AT DISCHARGE. * CALL IF INCREASED PAIN, REDNESS, DRAINAGE OR FEVER GREATER THAT 101. * WEAR BRENNA HOSE 20 HOURS PER DAY FOR 2 WEEKS. * YOU MAY HAVE A LARGE BAND-AID LIKE DRESSING (SILVERON). THIS WILL REMAIN ON YOUR INCISION FOR 7 DAYS, THEN CAN BE REMOVED. IF INCISION IS LEAKING THROUGH DRESSING, CALL THE OFFICE . FOLLOW UP VISIT: If appointment is not already scheduled: Please call [facility] to make a follow-up appointment for 2 weeks after your surgery at . Current Hospital Diet Patient's current hospital diet: Regular Diet Discharge Diet Recommended Diet: Regular Diet Procedures Procedures Performed: Left Knee Quadriceps Repair Pending Studies Studies pending at discharge: no Laboratory Results Hemoglobin A1c Test 06/11/17 08:23 Range/Units Estimated Average Glucose 114 mg/dl Hemoglobin A1c 5.6 4.5-5.6 % Medical Emergencies . Who to Call and When: Medical Emergencies: If at any time you feel your situation is an emergency, please call 911 immediately. . Non-Emergent Contact Non-Emergency issues call your: Surgeon . "Provider Documentation" section prepared by Jacqui Nieto. . VTE Core Measure Inpt VTE Proph given/why not?: Other Anticoagulation, T.E.D. Stockings, SCD's
[2017-08-08] MEDS: FERROUS GLUCONATE 324 MG TAB PO SCH ×2 (08:43→12:30)
[2017-08-08] MEDS: DOCUSATE SODIUM 100 MG CAP PO SCH (08:43)
[2017-08-08] MEDS: ASPIRIN 81 MG ECTAB PO SCH (08:43)
--- NOTE | 2017-08-08 08:59 | Anesthesiology Progress Note ---
Anesthesia Post Op Note Date & Time Aug 08, 2017 at 08:58 Vital Signs Pain Intensity: 4.0 Vital Signs Past 12 Hours Date Time Temp Pulse Resp B/P (MAP) Pulse Ox O2 Delivery O2 Flow Rate FiO2 08/08/17 07:30 Room Air 08/08/17 06:58 36.8 71 19 121/77 (92) 98 Room Air 08/08/17 03:16 36.6 81 17 111/65 (80) 97 Room Air 08/07/17 23:35 36.4 80 16 106/63 (77) 96 Room Air 08/07/17 23:21 Room Air Notes Mental Status: alert / awake / arousable, participated in evaluation Pt Amnestic to Procedure: Yes Nausea / Vomiting: adequately controlled Pain: adequately controlled Airway Patency, RR, SpO2: stable & adequate BP & HR: stable & adequate Hydration State: stable & adequate Neuraxial Anesthesia: sensory block resolved Anesthetic Complications: no major complications apparent
[2017-08-08] MEDS ORDERED: MULTIVITAMIN TAB PO SCH (09:00)
[2017-08-08] MEDS ORDERED: SIMVASTATIN 10 MG TAB PO SCH (09:00)
[2017-08-08] MEDS ORDERED: PANTOprazole SOD 40 MG TAB PO SCH ×2 (09:00)
[2017-08-08 09:45] VITALS: BP 121/77; PULSE 71; TEMP 36.8; O2SAT 98
--- NOTE | 2017-08-08 10:04 | NUR ---
ID Note: Alert and oriented x4. Saline locked. Tolerating a regular diet. OOB with minimal assist and walker. Immobilizer on. Voiding in urinal. Pain being controlled by PRN PO pain medication. Osmany wrap dressing intact, to be discontinued prior to discharge. Plan to be discharged home with no needs today after lunch. Will continue to monitor.
--- NOTE | 2017-08-08 11:50 | NUR ---
Case Management: Met with pt at bedside. Pt report he lives with his and she is able to assist him. Pt lives in a one story home with 2 steps to enter. Reports he has a grab bar at the doorway to get into the home. He reports being independent with ADLs. He has been using a cane and brace for the last two weeks. He also has crutches at home. He recently gave his walker away. Pt is planning to return home on discharge. No discharge needs identified. Case Management to follow.
[2017-08-08] MEDS ORDERED: CeleBREX 200 MG CAP PO SCH (21:00)
--- NOTE | 2017-08-09 08:35 | Discharge Summary ---
Orthopedic Discharge Summary Admission Date/Reason Aug 07, 2017 at 10:00 Strain Of Left Quadriceps Muscle, Fascia & Tendon. Discharge Date/Disposition Aug 08, 2017 Home Diagnosis Principal Diagnosis: left knee quad tear Procedure(s) Performed Left Knee Quadriceps Repair Consultations NONE Medication Reconciliation New Medications: Oxycodone HCl (Oxycodone HCl) 5 Mg Tab 5-10 MG PO Q4H PRN for Pain, #60 TAB Senna (Senokot) 8.6 Mg Tab 17.2 MG PO HS for 14 Days, TAB Changed Medications: Aspirin (Aspirin Ec) 81 Mg Tab 81 MG PO BID for 30 Days (Changed from: QAM) Celecoxib (CeleBREX) 200 Mg Cap 200 MG PO BID for 30 Days, #60 CAP (Changed from: QAM) Continued Medications: Acetaminophen (Tylenol) 500 Mg Tab 1000 MG PO prn for 30 Days, TAB (This prescription has been renewed) Docusate Sodium (Docusate Sodium) 100 Mg Cap 100 MG PO QAM Fish Oil (Brandon-3) 1 Ea Cap 1 CAP PO QAM, CAP Lansoprazole (Prevacid) 30 Mg Capcr 30 MG PO QAM, CAP Multivitamin (Multivitamin) Tab 1 TAB PO QAM, TAB Simvastatin (Zocor) 10 Mg Tab 10 MG PO QAM, TAB Admission Physical Exam As per Admitting History & Physical. Hospital Course Patient was a same day admission after undergoing a successful left knee quad repair s/p TKA. he tolerated the procedure well. Post-operatively, his activity was progressed and well tolerated. Please refer to daily progress notes and PT notes for complete details. After exam on 08/08/17, patient felt to be stable for discharge home. Patient will f/u in the office in 2 weeks for further evaluation including x-rays and incision check, sooner if having any issues or concerns. Below are pertinent labs/studies during their hospital stay: Last Vital Signs Documentation Date Time Temp Pulse Resp B/P (MAP) Pulse Ox O2 Delivery O2 Flow Rate FiO2 08/08/17 09:45 36.8 71 19 98 Room Air 08/08/17 06:58 121/77 (92) 08/07/17 17:41 2.0 Last Resulted CBC 08/08/17 06:02 Last Resulted BMP 08/08/17 06:02 Discharge Instructions Admission Reason for Admission: Strain Of Left Quadriceps Muscle, Fascia & Tendon Discharge Discharge Diagnosis / Problem: sp left QUAD Discharge Goals Goal(s): Decrease discomfort, Improve function, Increase independence Activity Recommendations Activity Limitations: per Instructions/Follow-up section . Instructions / Follow-Up Instructions / Follow-Up ACTIVITY RECOMMENDATIONS: SELF CARE INSTRUCTIONS AFTER TOTAL KNEE REPLACEMENT A. You need to maintain knee immobilizer when ambulating x 2-3 weeks. May flex knee 0-30 when doing exercises. C. Make walking a part of your daily routine. Be up as much as comfortable with rest periods throughout the day. Rest with leg elevation is very important. Use the ice wrap frequently for the first 3-4 weeks. D. There are no restrictions on activities. 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 E. Wear the long elastic stockings (BRENNA hose) 20 hours a day for 2 weeks after surgery. They can be removed several times a day for laundering and for a bath. F. You may shower, no tub baths until cleared by your doctor. SPECIAL CARE INSTRUCTIONS: VERY IMPORTANT TO READ AND REVIEW A. There are a few signs you need to watch for after you are home. Call [facility] if you notice any of the followin. Increased severe knee pain. Some pain is expected especially when you exercise. 2. Increased swelling in your leg or knee; pain or swelling of the calf muscle in either lower leg. 3. Any fluid drainage from the incision. 4. Shortness of breath or chest pain. B. Please call [facility] at if you have any concerns or questions about your operation or recovery. The doctor or his nurse will return your call promptly. C. You must take antibiotics before dental work, bladder, bowel or other surgery. Your doctor will provide you with a permanent care to carry describing this precaution. IMPORTANT: * REMEMBER TO TAKE ASPIRIN, 81 MG, TWICE DAILY FOR 4 WEEKS UNLESS OTHERWISE DIRECTED. THIS IS YOUR BLOOD THINNER. * HIGH RISK PATIENTS MAY BE PRESCRIBED A STRONGER BLOOD THINNER. THIS WILL BE PROVIDED AT DISCHARGE. * CALL IF INCREASED PAIN, REDNESS, DRAINAGE OR FEVER GREATER THAT 101. * WEAR BRENNA HOSE 20 HOURS PER DAY FOR 2 WEEKS. * YOU MAY HAVE A LARGE BAND-AID LIKE DRESSING (SILVERON). THIS WILL REMAIN ON YOUR INCISION FOR 7 DAYS, THEN CAN BE REMOVED. IF INCISION IS LEAKING THROUGH DRESSING, CALL THE OFFICE . FOLLOW UP VISIT: If appointment is not already scheduled: Please call [facility] to make a follow-up appointment for 2 weeks after your surgery at . Current Hospital Diet Patient's current hospital diet: Regular Diet Discharge Diet Recommended Diet: Regular Diet Procedures Procedures Performed: Left Knee Quadriceps Repair
== END 2017-08-08 13:20 | disposition home or self-care (01) | DRG 502 ==
LOC: C.ACU 09:20 → C.3E 10:00 → ENRESERV 15:11
PROVIDERS: ADMIT Orthopaedic Surgery; ATTEND Orthopaedic Surgery
PROC: 0LQR0ZZ Repair Left Knee Tendon, Open Approach (ICD-10-PCS; principal; 2017-08-07 12:15)
DX: S76.112A Strain of left quadriceps muscle, fascia and tendon, initial encounter (principal); W00.9XXA Unspecified fall due to ice and snow, initial encounter; Z96.652 Presence of left artificial knee joint; Z98.890 Other specified postprocedural states; E78.00 Pure hypercholesterolemia, unspecified; K21.9 Gastro-esophageal reflux disease without esophagitis; K44.9 Diaphragmatic hernia without obstruction or gangrene; E66.9 Obesity, unspecified; Z68.34 Body mass index [BMI] 34.0-34.9, adult; Z79.82 Long term (current) use of aspirin; Z79.899 Other long term (current) drug therapy